=== PATIENT | female | born 2000 | race Caucasian/White ===

== ENCOUNTER 2022-02-06 10:25 | Inpatient (IN) | payer OTHER ==
[~2022-02-06] VITALS: Ht 154.9 cm; Wt 119.7 kg
[2022-02-06] MEDS ORDERED: ONDANSETRON 4 MG/2 ML VIAL IVP PRN ×2 (10:45→23:40)
[2022-02-06] MEDS ORDERED: METHYLERGONOVINE 0.2 MG/ML AMP IM PRN ×2 (10:45→22:10)
[2022-02-06] MEDS ORDERED: OXYTOCIN 20 UNITS in LACTATED RINGERS 1,000 ML IV SCH (10:45)
[2022-02-06 11:34] LABS: BASOPHILS # (AUTO) 0.1 K/uL (0.00-0.22); BASOPHILS % (AUTO) 0.6 % (0.0-2.0); EOSINOPHILS % (AUTO) 0.4 % (0.0-4.0); HEMATOCRIT 38.9 % (36-48); HEMOGLOBIN 13.2 g/dL (12.0-16.0); LYMPHOCYTES # (AUTO) 1.8 K/uL (2.5-16.5); LYMPHOCYTES % (AUTO) 15.4 % (20.5-51.1); MEAN CORPUSCULAR HEMOGLOBIN 29 pg (27-31); MEAN CORPUSCULAR HGB CONC 34 g/dL (33-37); MEAN CORPUSCULAR VOLUME 86.9 fL (80-94); MONOCYTES # (AUTO) 0.6 K/uL (0.8-1.0); MONOCYTES % (AUTO) 5.4 % (1.7-9.3); NEUTROPHILS % (AUTO) 78.2 % (42.2-75.2); PLATELET COUNT (AUTO) 194 K/uL (140-450); RED BLOOD CELL COUNT(AUTO) 4.47 MIL/uL (4.20-5.40); RED CELL DISTRIBUTION WIDTH 15.1 % (11.6-13.7); WHITE BLOOD COUNT (AUTO) 11.5 K/uL (4.8-10.8)
[2022-02-06 11:48] LABS: PROTHROMBIN TIME 9.2 secs (10.8-13.4)
[2022-02-06 11:55] LABS: ALBUMIN 2.8 g/dL (3.4-5.0); ANION GAP 11.2 (8-16); CARBON DIOXIDE 22.9 mmol/L (21-32); CREATININE 0.6 mg/dL (0.6-1.3); POTASSIUM 4.1 mmol/L (3.5-5.1); TOTAL BILIRUBIN 0.3 mg/dL (0.0-1.0)
[2022-02-06] MEDS ORDERED: MORPHINE SULFATE 10 MG/ML VIAL IVP PRN (12:30)
[2022-02-06] MEDS: LACTATED RINGERS 1,000 ML IV SCH ×3 (13:12→19:06)
[2022-02-06] MEDS ORDERED: ROPIVACAINE 0.2%/NS PREMIX 200 ML EPI ONE (14:03)
[2022-02-06] MEDS ORDERED: fentaNYL citrate 0.05 MG/ML VIAL ONE ×2 (14:04→21:21)
[2022-02-06 14:56] LABS: APPEARANCE,URINE CLEAR (CLEAR); BILIRUBIN,URINE NEGATIVE (NEGATIVE); BLOOD, URINE NEGATIVE (NEGATIVE); COLOR,URINE YELLOW (YELLOW); LEUKOCYTE ESTERASE ,URINE NEGATIVE (NEGATIVE); NITRITE, URINE NEGATIVE (NEGATIVE); UGLUCOSE NEGATIVE (NEGATIVE)
[2022-02-06] MEDS ORDERED: OXYTOCIN 20 UNITS/LR PREMIX 1,000 ML IV ONE ×2 (15:00→21:31)
[2022-02-06 15:36] VITALS: BP 129/76
[2022-02-06] MEDS ORDERED: TERBUTALINE 1 MG/ML VIAL SUBQ SCH (20:15)
[2022-02-06] MEDS ORDERED: TERBUTALINE 1 MG/ML VIAL SUBQ ONE (20:16)
[2022-02-06] MEDS ORDERED: CITRIC ACID/SODIUM CITRATE 30 ML UDC PO ONE (20:50)
[2022-02-06] MEDS ORDERED: ceFAZolin 1,000 MG VIAL ONE (21:04)
[2022-02-06] MEDS ORDERED: CITRIC ACID/SODIUM CITRATE 30 ML UDC ONE (21:05)
[2022-02-06] MEDS ORDERED: KETAMINE 500 MG/5 ML VIAL ONE (21:15)
[2022-02-06] MEDS ORDERED: LIDOCAINE/EPI MPF 2%1:200000 10 ML VIAL INJ ONE (21:16)
[2022-02-06] MEDS ORDERED: MORPHINE PRES FREE 10 MG/10 ML AMP IV ONE (21:17)
[2022-02-06] MEDS ORDERED: MIDAZOLAM 2 MG/2 ML VIAL ONE (21:20)
[2022-02-06] MEDS ORDERED: KETOROLAC 30 MG/ML VIAL ONE (22:02)
[2022-02-06] MEDS ORDERED: ePHEDrine 50 MG/ML VIAL ONE (22:02)
[2022-02-06] MEDS ORDERED: DEXAMETHASONE 4 MG/ML VIAL ONE (22:02)
[2022-02-06] MEDS ORDERED: MEASLES, MUMPS, AND RUBELLA 1 VIAL SQVAC ONE (22:10)
[2022-02-06] MEDS ORDERED: PROMETHAZINE 25 MG/ML VIAL IVP PRN (22:10)
[2022-02-06] MEDS: OXYTOCIN 20 UNITS in LACTATED RINGERS 1,000 ML IV SCH ×2 (23:29→23:40)
[2022-02-06] MEDS ORDERED: NALOXONE 0.4 MG/ML VIAL IVP PRN ×3 (23:40)
[2022-02-06] MEDS ORDERED: diphenhydrAMINE 50 MG/ML VIAL IVP PRN (23:40)
[2022-02-06] MEDS ORDERED: NALBUPHINE 10 MG/ML AMP IVP PRN (23:40)
[2022-02-07] MEDS: KETOROLAC 30 MG/ML VIAL IM/IVP SCH ×4 (00:36→17:48)
[2022-02-07 05:31] LABS: BASOPHILS # (AUTO) 0.1 K/uL (0.00-0.22); BASOPHILS % (AUTO) 0.3 % (0.0-2.0); HEMATOCRIT 32.8 % (36-48); HEMOGLOBIN 11.2 g/dL (12.0-16.0); LYMPHOCYTES # (AUTO) 0.9 K/uL (2.5-16.5); LYMPHOCYTES % (AUTO) 5.2 % (20.5-51.1); MEAN CORPUSCULAR HEMOGLOBIN 30 pg (27-31); MEAN CORPUSCULAR HGB CONC 34 g/dL (33-37); MEAN CORPUSCULAR VOLUME 87.4 fL (80-94); MONOCYTES # (AUTO) 0.7 K/uL (0.8-1.0); MONOCYTES % (AUTO) 3.8 % (1.7-9.3); NEUTROPHILS # (AUTO) 16.1 K/uL (1.8-7.7); NEUTROPHILS % (AUTO) 90.7 % (42.2-75.2); PLATELET COUNT (AUTO) 148 K/uL (140-450); RED BLOOD CELL COUNT(AUTO) 3.75 MIL/uL (4.20-5.40); RED CELL DISTRIBUTION WIDTH 15.3 % (11.6-13.7); WHITE BLOOD COUNT (AUTO) 17.8 K/uL (4.8-10.8)
--- NOTE | 2022-02-07 08:42 | NUR ---
PATIENT HAS BEEN SCREENED AND CATEGORIZED LOW NUTRITION RISK. PATIENT WILL BE SEEN WITHIN 7 DAYS OF ADMISSION. 02/12/[address]
[2022-02-07] MEDS: bisacodyL 10 MG SUPP RC SCH (09:00)
[2022-02-07] MEDS: OXYTOCIN 20 UNITS in LACTATED RINGERS 1,000 ML IV SCH (11:58)
[2022-02-08] MEDS: oxyCODONE/APAP 5/325 MG 1 TAB TAB PO PRN ×4 (02:30→17:41)
[2022-02-08] MEDS: bisacodyL 10 MG SUPP RC SCH (08:37)
[2022-02-08] MEDS ORDERED: CAMERA MC ONE (19:12)
[2022-02-09] MEDS: oxyCODONE/APAP 5/325 MG 1 TAB TAB PO PRN ×2 (04:24→12:18)
[2022-02-09] MEDS: bisacodyL 10 MG SUPP RC SCH (09:00)
== END 2022-02-09 18:25 | disposition home or self-care (01) | DRG 540 ==
LOC: MLD 10:25 → MFCC 23:44
PROVIDERS: ADMIT Obstetrics & Gynecology; ATTEND Obstetrics & Gynecology
PROC: 10D00Z1 Extraction of Products of Conception, Low, Open Approach (ICD-10-PCS; principal; 2022-02-06 21:30)
DX: O76 Abnormality in fetal heart rate and rhythm complicating labor and delivery (principal); Z20.822 Contact with and (suspected) exposure to COVID-19; Z37.0 Single live birth; Z3A.40 40 weeks gestation of pregnancy
CPT/HCPCS: 36415; 51702; 76815; 80053; 81003; 85025; 85610; 85730; 86592; 86886; 86900; 86901; 90715; J0690; J1100; J1885; J2001; J2250; J2270; J2590; J2795; J3010; J3105; J7120; Q0092

== ENCOUNTER 2022-03-01 10:25 | Emergency (ER) | payer OTHER ==
[~2022-03-01] VITALS: Ht 154.9 cm; Wt 110.2 kg
[2022-03-01 10:45] VITALS: BP 158/84
--- NOTE | 2022-03-01 11:34 | NUR ---
PT AMBULATED TO ER BED 8
--- NOTE | 2022-03-01 11:36 | NUR ---
PATIENT AMBULATE TO ROOM 8. PT IN GOWN
--- NOTE | 2022-03-01 11:38 | NUR ---
DR STILES AT BEDSIDE EVALUATING PT
[2022-03-01] MEDS ORDERED: CEPH-588 PO (12:04)
== END 2022-03-01 12:15 | disposition home or self-care (01) ==
LOC: MED 10:25
DX: O86.09 Infection of obstetric surgical wound, other surgical site (principal)
CPT/HCPCS: 99283